=== PATIENT | male | born 1940 | race Caucasian/White ===

== ENCOUNTER 2023-09-08 01:45 | Observation (INO) ==
[2023-09-08 02:13] LABS: ABS Lymphocytes 0.7 10^3/uL (1.0-4.8); ABS Neutrophils 13.6 10^3/uL (1.5-7.6); Eosinophil % 0.2 %; Hematocrit 35.2 % (38-53); Hemoglobin 11.6 g/dL (13.2-16.3); Lymphocyte % 4.4 %; Mean Corpuscular Hemoglobin 28.7 pg (27-33); Mean Corpuscular Hgb Conc 33.1 g/dL (31-36); Mean Corpuscular Volume 86.6 fL (80-97); Mean Platelet Volume 6.4 fL (7.5-11.2); Platelet Count 318 10^3/uL (150-450); Red Blood Count 4.06 10^6/uL (4.06-5.63); Red Cell Distribution Width 16.3 % (12-17); White Blood Count 15.3 10^3/uL (3.6-10.2)
[2023-09-08] MEDS: NS 0.9% 500 ml BAG 500 ML IV ONE (02:19)
[2023-09-08 02:29] LABS: INR 1.15 (0.83-1.13)
[2023-09-08 03:31] LABS: Albumin 2.7 g/dL (3.2-5.2); Albumin/Globulin Ratio 1.3 (1-3); C Reactive Protein 39.69 mg/L (<8.01); Calcium 8.2 mg/dL (8.6-10.3); Creatinine, Serum 0.73 mg/dL (0.67-1.17); Globulin 2.1 g/dL (2-4); Magnesium 1.8 mg/dL (1.9-2.7); Potassium 4.1 mmol/L (3.5-5.0); Total Bilirubin 0.7 mg/dL (0.2-1.0); Total Protein 4.8 g/dL (6.4-8.9)
[2023-09-08 03:51] LABS: High Sensitivity Troponin 1 Hr 23 pg/mL (<20)
[2023-09-08] MEDS ORDERED: Ondansetron 4 mg VIAL 2 MG/ML 2 ml VIAL IV PRN (07:41)
[2023-09-08] MEDS ORDERED: Senna TAB 8.6 mg TAB PO PRN (07:41)
[2023-09-08] MEDS ORDERED: Polyethylene Glycol 3350 17 GM PACKET PO PRN (07:41)
[2023-09-08] MEDS: cefTRIAXone 1 gm/50 mL D5W 1 GM/50 ML BAG IV ONE (08:47)
[2023-09-08] MEDS: Enoxaparin 40 MG/0.4 ML SYR SUBCUT SCH (08:47)
[2023-09-08 09:06] LABS: Body Fluid Total Nucleated 124 /mcL
[2023-09-08 09:29] LABS: Body Fluid Source Pleural Fluid
[2023-09-08 09:30] LABS: Body Fluid Appearance Cloudy; Body Fluid Color Pink
[2023-09-08 09:42] LABS: Body Fluid Mono 40 %; Body Fluid Other Cells 9; Body Fluid Total Cells Counted 200
[2023-09-08] MEDS: Lactated Ringers 1000 ml BAG 1,000 ML IV ONE (10:22)
[2023-09-08] MEDS: Azithromycin 500 mg/250 ml NS 500 MG/250 ML BAG IVPB SCH (11:57)
[2023-09-08] MEDS: Iohexol 350 (CONTRAST) 500 ML MDV IV ONE (15:17)
[2023-09-08] MEDS: Lactated Ringers 1000 ml BAG 1,000 ML IV SCH (15:23)
[2023-09-08] MEDS: Magnesium Sulfate 2 gm BAG 2 GM/50 ML BAG IVPB ONE (16:27)
[2023-09-08] MEDS: Calcium/Vitamin D TAB 250/125 TAB PO SCH (20:30)
[2023-09-08] MEDS: Emollient Lotion 480 ml BTL TOPICAL SCH (20:33)
[2023-09-09 06:36] LABS: Calcium 7.4 mg/dL (8.6-10.3); Creatinine, Serum 0.58 mg/dL (0.67-1.17); Magnesium 2.1 mg/dL (1.9-2.7); Potassium 3.9 mmol/L (3.5-5.0); eGFR CKD-EPI 98.6 (>60)
[2023-09-09 06:38] LABS: ABS Monocytes 0.8 10^3/uL (0.0-1.1); ABS Neutrophils 9.4 10^3/uL (1.5-7.6); Eosinophil % 0.2 %; Hematocrit 32.7 % (38-53); Hemoglobin 10.8 g/dL (13.2-16.3); Lymphocyte % 8.8 %; Mean Corpuscular Hemoglobin 28.8 pg (27-33); Mean Corpuscular Volume 87.3 fL (80-97); Mean Platelet Volume 6.7 fL (7.5-11.2); Platelet Count 254 10^3/uL (150-450); Red Blood Count 3.74 10^6/uL (4.06-5.63); Red Cell Distribution Width 16.8 % (12-17); White Blood Count 11.3 10^3/uL (3.6-10.2)
[2023-09-09] MEDS: Potassium Chlor 20 meq TAB.ER PO ONE (09:13)
[2023-09-09] MEDS: cefTRIAXone 1 gm/50 mL D5W 1 GM/50 ML BAG IV SCH (09:14)
[2023-09-09] MEDS: Vitamin THERAPEUTIC TAB PO SCH (09:14)
[2023-09-10 05:26] LABS: ABS Eosinophils 0.1 10^3/uL (0.0-0.5); ABS Lymphocytes 0.7 10^3/uL (1.0-4.8); ABS Monocytes 0.9 10^3/uL (0.0-1.1); ABS Neutrophils 7.6 10^3/uL (1.5-7.6); Eosinophil % 0.6 %; Hemoglobin 10.5 g/dL (13.2-16.3); Lymphocyte % 7.1 %; Mean Corpuscular Hemoglobin 29.4 pg (27-33); Mean Corpuscular Hgb Conc 33.8 g/dL (31-36); Mean Corpuscular Volume 86.9 fL (80-97); Mean Platelet Volume 6.3 fL (7.5-11.2); Platelet Count 242 10^3/uL (150-450); Red Blood Count 3.56 10^6/uL (4.06-5.63); Red Cell Distribution Width 16.6 % (12-17); White Blood Count 9.2 10^3/uL (3.6-10.2)
[2023-09-10 06:14] LABS: Calcium 7.2 mg/dL (8.6-10.3); Creatinine, Serum 0.64 mg/dL (0.67-1.17); Potassium 4.8 mmol/L (3.5-5.0); eGFR CKD-EPI 95.7 (>60)
[2023-09-10 09:59] VITALS: BP 99/60
== END 2023-09-10 13:00 | disposition home or self-care (01) ==
LOC: EDHOLD 01:45 → ED 01:45 → SUATTDRO 07:41 → MEDTELE 09:30 → SSU 11:28
PROVIDERS: ADMIT Internal Medicine; ATTEND Hospitalist

== ENCOUNTER 2023-09-23 11:54 | Inpatient (IN) ==
[2023-09-23 14:28] LABS: Hematocrit 34.3 % (38-53); Hemoglobin 11.2 g/dL (13.2-16.3); Mean Corpuscular Hemoglobin 28.4 pg (27-33); Mean Corpuscular Hgb Conc 32.8 g/dL (31-36); Mean Corpuscular Volume 86.8 fL (80-97); Mean Platelet Volume 6.5 fL (7.5-11.2); Platelet Count 305 10^3/uL (150-450); Red Blood Count 3.95 10^6/uL (4.06-5.63); Red Cell Distribution Width 16.5 % (12-17); White Blood Count 36.6 10^3/uL (3.6-10.2)
[2023-09-23 15:15] LABS: ABS Basophils 0.5 10^3/uL (0.0-0.1); ABS Lymphocytes 0.6 10^3/uL (1.0-4.8); ABS Monocytes 0.9 10^3/uL (0.0-1.1); ABS Neutrophils 34.6 10^3/uL (1.5-7.6); ABS Nucleated RBC 0.03 10^3/ul; Anisocytosis 1+; Lymphocyte % 1.6 %; Nucleated Red Blood Cells % 0.1 %/100WBC (0.0-0.8)
[2023-09-23 15:16] LABS: Albumin 2.6 g/dL (3.2-5.2); Albumin/Globulin Ratio 1.4 (1-3); Creatinine, Serum 0.69 mg/dL (0.67-1.17); Globulin 1.8 g/dL (2-4); Potassium 5.3 mmol/L (3.5-5.0); Total Bilirubin 0.5 mg/dL (0.2-1.0); Total Protein 4.4 g/dL (6.4-8.9); eGFR CKD-EPI 93.6 (>60)
[2023-09-23 16:05] LABS: Sodium, Whole Blood 119 mmol/L (136-145)
[2023-09-23] MEDS ORDERED: cefTRIAXone 2 GM ADDV.VIAL 2 GM in NS 0.9% 100 ml BAG 100 ML IV ONE (16:59)
[2023-09-23] MEDS: NS 0.9% 1000 ml BAG 1,000 ML IV ONE ×2 (17:33→23:24)
[2023-09-23] MEDS: cefTRIAXone 2 gm/50 mL D5W 2 GM/50 ML BAG IV ONE (17:46)
[2023-09-23] MEDS ORDERED: Ondansetron 4 mg VIAL 2 MG/ML 2 ml VIAL IV PRN (22:26)
[2023-09-23] MEDS ORDERED: Vancomycin per Pharmacy 1 EA NOTE FOLLOW UP SCH (23:00)
[2023-09-23 23:10] LABS: PCO2 Arterial 41 mmHg (35-45); PO2 Arterial 62 mmHg (80-100)
[2023-09-23] MEDS: Cefepime 1 GM in Dextrose 1 GM/50 ML BAG IV ONE (23:20)
[2023-09-23] MEDS: NS 0.9% 500 ml BAG 500 ML IV ONE (23:20)
[2023-09-23] MEDS: Vancomycin 1,000 MG in NS 0.9% 250 ml 250 ML IVPB ONE (23:57)
[2023-09-24] MEDS: Furosemide 20 mg/2 ml IV VIAL IV ONE (02:28)
[2023-09-24 04:59] LABS: Hematocrit 31.4 % (38-53); Hemoglobin 10.4 g/dL (13.2-16.3); Mean Corpuscular Hemoglobin 28.8 pg (27-33); Mean Corpuscular Hgb Conc 33.3 g/dL (31-36); Mean Corpuscular Volume 86.6 fL (80-97); Mean Platelet Volume 6.4 fL (7.5-11.2); Platelet Count 299 10^3/uL (150-450); Red Blood Count 3.62 10^6/uL (4.06-5.63); Red Cell Distribution Width 16.7 % (12-17); White Blood Count 40.9 10^3/uL (3.6-10.2)
[2023-09-24 05:28] LABS: ABS Basophils 0.1 10^3/uL (0.0-0.1); ABS Lymphocytes 0.7 10^3/uL (1.0-4.8); ABS Monocytes 1.4 10^3/uL (0.0-1.1); ABS Neutrophils 38.7 10^3/uL (1.5-7.6); ABS Nucleated RBC 0.03 10^3/ul; Anisocytosis 1+; Lymphocyte % 1.6 %; Nucleated Red Blood Cells % 0.1 %/100WBC (0.0-0.8)
[2023-09-24 05:34] LABS: Calcium 7.2 mg/dL (8.6-10.3); Creatinine, Serum 0.65 mg/dL (0.67-1.17); Magnesium 2.1 mg/dL (1.9-2.7); Potassium 4.8 mmol/L (3.5-5.0); eGFR CKD-EPI 95.3 (>60)
[2023-09-24] MEDS: Enoxaparin 40 MG/0.4 ML SYR SUBCUT SCH (05:55)
[2023-09-24 06:27] LABS: Urine Appearance Clear; Urine Bilirubin Negative (Negative); Urine Blood Negative (Negative); Urine Color Light-Yellow; Urine Glucose Negative (Negative); Urine Ketones Trace (Negative); Urine Nitrite Negative (Negative); Urine Protein Negative (Negative); Urine Specific Gravity 1.009 (1.002-1.030); Urine Urobilinogen Negative (Negative)
[2023-09-24] MEDS: Norepinephrine *QUAD STRENGTH* 16 mg/250 mL NS PREMIX (ICU ONLY) IV SCH (07:05)
[2023-09-24] MEDS: Vancomycin 1,250 MG in NS 0.9% 250 ml 250 ML IVPB SCH (10:19)
[2023-09-24 11:11] LABS: INR 1.19 (0.83-1.13)
[2023-09-24] MEDS: Cefepime 1 GM in Dextrose 1 GM/50 ML BAG IV SCH (13:18)
[2023-09-24 15:49] LABS: Body Fluid Appearance Cloudy; Body Fluid Color Pink; Body Fluid Source Pleural Fluid
[2023-09-24 15:59] LABS: Body Fluid Total Nucleated 248 /mcL
[2023-09-24 17:20] LABS: Body Fluid Mono 2 %; Body Fluid Other Cells 14; Body Fluid Total Cells Counted 200
[2023-09-25] MEDS ORDERED: Lorazepam PYXIS KEY PRN (05:18)
[2023-09-25] MEDS: LORazepam 2 mg VIAL 1 ml IV PUSH ONE (05:47)
[2023-09-25 05:50] LABS: Hematocrit 31.3 % (38-53); Hemoglobin 10.4 g/dL (13.2-16.3); Mean Corpuscular Hemoglobin 28.8 pg (27-33); Mean Corpuscular Hgb Conc 33.1 g/dL (31-36); Mean Corpuscular Volume 86.9 fL (80-97); Mean Platelet Volume 6.4 fL (7.5-11.2); Platelet Count 318 10^3/uL (150-450); Red Cell Distribution Width 16.6 % (12-17); White Blood Count 35.7 10^3/uL (3.6-10.2)
[2023-09-25] MEDS: Morphine 2 MG/ML SYRINGE IV ONE (06:04)
[2023-09-25 06:24] LABS: Albumin 2.4 g/dL (3.2-5.2); Albumin/Globulin Ratio 1.4 (1-3); Calcium 7.1 mg/dL (8.6-10.3); Creatinine, Serum 0.61 mg/dL (0.67-1.17); Globulin 1.7 g/dL (2-4); Magnesium 2.1 mg/dL (1.9-2.7); Phosphorus 2.2 mg/dL (2.5-5.0); Potassium 4.4 mmol/L (3.5-5.0); Total Bilirubin 0.5 mg/dL (0.2-1.0); Total Protein 4.1 g/dL (6.4-8.9); eGFR CKD-EPI 97.1 (>60)
[2023-09-25 07:52] LABS: ABS Basophils 0.1 10^3/uL (0.0-0.1); ABS Lymphocytes 1.2 10^3/uL (1.0-4.8); ABS Monocytes 1.3 10^3/uL (0.0-1.1); ABS Nucleated RBC 0.02 10^3/ul; Eosinophil % 0.1 %; Lymphocyte % 3.5 %; Nucleated Red Blood Cells % 0.1 %/100WBC (0.0-0.8)
[2023-09-25 07:53] LABS: RBC Morphology Normal (Normal)
[2023-09-25] MEDS: Vancomycin Trough Check NOTE FOLLOW UP ONE (09:40)
[2023-09-25 14:12] LABS: Lactate Dehydrogenase, BF 513 U/L
[2023-09-25] MEDS: Morphine ORAL.SOLN 10 mg 2 mg/ml UDC 5 ml (10 mg) PO PRN ×2 (14:52→16:56)
[2023-09-25 16:16] LABS: Albumin, BF 0.9 g/dL; Fluid Type, Albumin PLEURAL FLUID; Fluid Type, Protein, Total PLEURAL FLUID; Glucose, BF 64 mg/dL; Total Protein, BF 1.4 g/dL
[2023-09-26 07:23] VITALS: BP 93/50
[2023-09-26] MEDS ORDERED: Lorazepam PYXIS KEY PRN (07:28)
[2023-09-26] MEDS ORDERED: Morphine PCA LOW DOSE 1 MG/ML 30 ML SYRINGE PCA SCH (08:00)
[2023-09-26] MEDS: Morphine 10 MG/ML VIAL (1 ml) IV ONE (08:28)
[2023-09-26] MEDS: LORazepam 2 mg VIAL 1 ml IV PUSH SCH (08:29)
[2023-09-26] MEDS ORDERED: Morphine 10 MG/ML VIAL (1 ml) IV SCH (09:00)
== END 2023-09-26 08:55 | disposition expired | DRG 871 ==
LOC: ED 11:54 → EDHOLD 22:26 → ICU 09-24 00:38
PROVIDERS: ADMIT Hospitalist; ATTEND Internal Medicine Critical Care Medicine